=== PATIENT | male | born 1980 | race Caucasian/White ===

== ENCOUNTER 2020-02-18 18:36 | Emergency (ER) | payer BC, OTHER ==
--- NOTE | 2020-02-18 20:17 | RAD ---
RIGHT ANKLE THREE VIEWS: 02/18/20 Soft tissue swelling is present, especially laterally. No fracture, dislocation, or joint space abnor mality was seen. IMPRESSION: Soft tissue swelling. POS: HOME
== END 2020-02-18 19:21 | disposition home or self-care (01) ==
LOC: BURERS 18:36
DX: S93.401A Sprain of unspecified ligament of right ankle, initial encounter (principal); W17.2XXA Fall into hole, initial encounter

== ENCOUNTER 2020-07-26 14:11 | Emergency (ER) | payer OTHER ==
[2020-07-26] MEDS ORDERED: Boostrix 0.5 ML (Tdap) VIAL ONE (14:41)
[2020-07-26] MEDS ORDERED: Lidocaine 1% PF 5 ML VIAL ONE (14:53)
== END 2020-07-26 15:30 | disposition home or self-care (01) ==
LOC: BURERS 14:11
DX: S61.412A Laceration without foreign body of left hand, initial encounter (principal); Z23 Encounter for immunization; W27.8XXA Contact with other nonpowered hand tool, initial encounter
CPT/HCPCS: 12001; 90471; 90715